=== PATIENT | male | born 1960 | race Caucasian/White ===

== ENCOUNTER → 2017-08-29 | Outpatient (CLI) | payer SELFPAY ==
--- NOTE | 2017-08-29 16:38 | RADIOLOGY REPORT PS360 ---
US SCROTUM HISTORY: Right-sided pain and tenderness and swelling ACQUIRED HYDROCELE ORDERING PHYSICIAN: Quin Hewitt MD PATIENT AGE: 57 years COMPARISON: None FINDINGS: RIGHT TESTICLE: The right testicle measures 4 x 3 x 3 cm. No mass evident. There is blood flow within the right testicle. Right epididymis has an unremarkable appearance. There is a large right hydrocele. The left testicle measures 4 x 2.6 x 2.5 cm. No mass apparent. No hydrocele on the left. The left epididymis has an unremarkable appearance IMPRESSION: Large right hydrocele otherwise negative scrotal ultrasound
--- NOTE | 2017-08-29 16:40 | RADIOLOGY REPORT PS360 ---
US EXTREMITIES RT LIMITED CLINICAL INDICATION: LYMPHADENOPATHY ORDERING PHYSICIAN: Quin Hewitt MD PATIENT AGE: 57 years COMPARISON: None FINDINGS: There is palpable area reported in the right groin. This corresponds to a hypoechoic 2.9 x 3.3 x 1.9 cm lymph node.. There are at least 2 other small nodes in the right groin 1.2 x 1 cm and 1.2 x 0.5 cm. No fluid collections evident. IMPRESSION: Right inguinal adenopathy
== END ==
LOC: RAD 11:30
DX: N43.3 Hydrocele, unspecified (principal); R59.0 Localized enlarged lymph nodes

== ENCOUNTER → 2017-09-01 | Outpatient (CLI) | payer SELFPAY ==
[2017-09-01 16:25] LABS: LYMPH # 2.9 K/mm3 (0.7-4.5); LYMPH % 40.5 % (10-50)
[2017-09-01 18:41] LABS: NEUTROPHILS 54 % (42-76)
== END ==
LOC: LAB 15:47
PROVIDERS: Family Medicine
DX: R59.0 Localized enlarged lymph nodes (principal)